=== PATIENT | male | born 1985 | race Caucasian/White ===

== ENCOUNTER 2025-05-18 14:21 | Emergency (ER) | payer MEDICAID, SELFPAY ==
[2025-05-18] VITALS (7 sets, daily range): BP systolic 114–158; BP diastolic 74–86; PULSE 77–100; RESP 16–18; TEMP 36.6–36.8; O2SAT 96–100
--- NOTE | 2025-05-18 15:22 | XR_ITS ---
Examination: CT brain head without contrast. 2-D sagittal coronal reconstructions Date and time of exam:The May 18, 2025 1531 hours INDICATIONS: Stroke alert, onset focal neurologic deficit today CTDI: vol (mGy):50.8 DLP: (mGycm):1074 Technique: Multiple CT axial sections of the brain have been obtained, 5 mm slice thickness. Contrast has not been administered. 2-D sagittal, coronal reconstructions have been obtained Low dose protocols were performed. One or more of the following dose reduction techniques were used; automated exposure control, adjustment of the mA and/or KV according to patient size, use of iterative reconstruction technique. Findings: No significant ventricular enlargement. Intra-axial or extra-axial hemorrhage density is not seen. No mass effect or midline shift Basal cisterns are not remarkable. Fourth ventricle is midline. Cranial vault intact. Impression: Negative for acute hemorrhage, mass effect or midline shift
--- NOTE | 2025-05-18 15:22 | XR_ITS ---
Examination: CTA carotids with intravenous contrast CTA brain, head with intravenous contrast. 2-D sagittal, coronal reconstructions. 3-D reconstructions. Exam date and time: May 18, 2025 1542 hours INDICATIONS: Stroke alert, onset focal neurologic deficit, dilated right high beginning 10:00 AM this morning CTDI: vol (mGy) 11.4 DLP: (mGycm) 503 Technique: Multiple CTA axial brain, head carotid images post intravenous contrast injection 75 cc, Isovue-370. 2-D sagittal, coronal reconstructions. 3-D reconstructions, 3-D post processing including vascular maximum intensity projection images. Low dose protocols were performed. One or more of the following dose reduction techniques were used; automated exposure control, adjustment of the mA and/or KV according to patient size, use of iterative reconstruction technique. Findings: No common carotid carotid bifurcation or internal carotid artery stenoses Dominant left vertebral artery with no critical stenoses Intracranial vertebral arteries basilar artery and posterior cerebral branches fill Juxtasellar supraclinoid portions both internal carotid arteries fill, M1 segments middle cerebral arteries middle cerebral artery trifurcation vessels and anterior cerebral arteries fill with no large vessel occlusions IMPRESSION: No significant neck arterial stenoses No cerebral large vessel arterial occlusions
--- NOTE | 2025-05-18 15:22 | EKG_ITS ---
[facility] Test Date: 2025-05-18 Pat Name: NILESH AGUIRRE Department: Room: - Gender: Male [employer]: : 1985 Requested By: Alli Anaya Order Number: [id number] Reading MD: Alli Anaya Measurements Intervals [place] Rate: 84 P: 50 [place]: 143 QRS: 52 QRSD: 80 T: 16 QT: 349 QTc: 413 Interpretive Statements SINUS RHYTHM No previous ECG available for comparison /store/S0/[id number]/ecg/[id number].pdf
[2025-05-18 15:58] LABS: Basophils % (Auto) 1 % (0-2.5); Eosinophils # (Auto) 0.2 Thou/mm3 (0.0-0.5); Eosinophils % (Auto) 3 % (0-10); Hematocrit 40.6 % (41.0-53.0); Hemoglobin 14.4 g/dL (13.5-16.0); Immature Granulocytes % (Auto) 0 % (0-0); Immature Granulocytes Auto 0.01 Thou/mm3 (0.00-0.00); Lymphocytes # (Auto) 1.8 Thou/mm3 (1.0-4.8); Lymphocytes % (Auto) 23 % (10-50); Mean Corpuscular HGB Conc 35.5 g/dl (31.0-37.0); Mean Corpuscular Hemoglobin 31.5 pg (25.0-35.0); Mean Corpuscular Volume 89 fL (80-100); Monocytes # (Auto) 0.5 Thou/mm3 (0.0-0.8); Monocytes % (Auto) 7 % (0-12); Neutrophils # (Auto) 5.2 Thou/mm3 (1.8-7.7); Neutrophils % (Auto) 67 % (37-80); Nucleated Red Blood Cell % 0 /100 WBC (0); Platelet Count 202 Thou/mm3 (140-440); RDW Standard Deviation 39.3 fL (35.1-43.9); Red Blood Count 4.57 Miln/mm3 (4.50-5.90); White Blood Count 7.8 Thou/mm3 (3.8-10.6)
[2025-05-18 16:11] LABS: Partial Thromboplastin Time 28.5 Seconds (22.0-36.0); Prothrombin Time 10.9 Seconds (9.0-12.2)
--- NOTE | 2025-05-18 16:13 | EDNOTE_ITS ---
ED Eye Problem RME/HPI General Chief complaint: General Adult/Misc Complain Stated complaint: SENT BY PCP; CONCERNED FOR STROKE Time Seen by Provider: 05/18/25 15:12 Arrival date/time: 05/18/25 14:21 Limitations: no limitations RME / HPI RME / HPI Narrative: 40 year old male with no known past medical history presents to the ED for evaluation of anisocoria, referred by his PCP. The patient reports waking this m orning at his usual state of health. Shortly after completing yard work and mowing the lawn around 10:00 AM, he noticed his right pupil appeared larger than the left, accompanied by blurred vision in the right eye. He denies any prior history of similar symptoms. States he consulted PCP, who recommended he come to the ED to rule out a potential stroke or other neurological problem. Patient denies headache, changes in speech, gait instability, or any loss of sensation or motor function. No other associated symptoms reported. Related Data Previous Rx's ?Medication ?Instructions ?Recorded Dicyclomine Hcl * (BENTYL *) 20 mg PO QID PRN abdomina l pains 05/14/17 #16 tabs Allergies Allergy/AdvReac Type Severity Reaction Status Date / Time No Known Allergies Allergy Verified 05/18/25 14:24 Review of Systems Review of Systems Systems Reviewed: All systems reviewed, normal except as documented Past Medical History Past Medical History CARDIAC: Positive Hypertension; Negative Congestive Heart Failure RESPIRATORY: Negative Chronic Obstructive Pulmonary Disease (COPD) GENITOURINARY: Negative Renal Disease ENDOCRINE: Negative Diabetes Mellitus Type 1 or Diabetes Mellitus Type 2 Family History FAMILY HISTORY: Negative Family Respiratory Disorders Social History SMOKING STATUS: Never smoker SUBSTANCE USE: does not use ED Exam General Limitations: Present no limitations General appearance: Present alert and in no apparent distress Head Head exam: Present atraumatic, normocephalic and normal inspection Eye Eye exam: Present EOMI and other (anisocoria, right pupils is 4mm and left pupil is 2.5mm ) ENT ENT exam: Present normal exam, normal oropharynx and mucous membranes moist Neck Neck exam: Present normal inspection, full ROM and trachea midline Chest Chest inspection: Present normal inspection and symmetric chest wall rise Respiratory Respiratory exam: Present normal lung sounds bilaterally Cardiovascular Cardiovascular exam: Present regular rate, normal rhythm and normal heart sounds Abdominal Exam Abdominal exam: Present soft and normal bowel sounds Extremities Exam Extremities exam: Present normal inspection and full ROM Back Exam Back exam: Present normal inspection and full ROM Neurological Exam Neurological exam: Present alert, oriented X3 and CN II-XII intact Psychiatric Psychiatric exam: Present normal affect and normal mood Skin Skin exam: Present warm, dry, intact and normal color Course Quality Measures Suspected type of Stroke: Non Acute Last known well (date): 06/02/25 Last known well (time): 10:00 Tenecteplase given: Reason(s) TPA not given: Outside the time window not given stroke Orders Category Date Time Status Bedside Blood Glucose NOW Care 05/18/25 15:22 Completed Internet Assessor NOW Care 05/18/25 15:22 Completed Continuous Pulse Oximetry NOW Care 05/18/25 15:22 Completed EKG (ED ONLY) *Do not use* NOW Care 05/18/25 15:22 Completed Insert IV NOW Care 05/18/25 15:22 Completed NIH Stroke Scale now Care 05/18/25 15:22 Completed NPO NOW Care 05/18/25 15:22 Completed Neuro Check Q15MIN Care 05/18/25 15:22 Completed Nurse Swallow Screen x1 Care 05/18/25 15:22 Completed Consult to Neurology / Tele-Neurology Routine Cons 05/18/25 15:[address] angio stroke protocol Stat Exams 05/18/25 15:[address] stroke protocol Stat Exams 05/18/25 15:22 Completed EKG (ED Only) Stat Exams 05/18/25 15:22 Draft Alcohol, Blood Medical Stat Lab 05/18/25 15:28 Completed CBC Stat Lab 05/18/25 15:28 Completed Comprehensive Metabolic Panel Stat Lab 05/18/25 15:28 Completed Drug Screen,Urine Stat Lab 05/18/25 16:38 Completed Magnesium Stat Lab 05/18/25 15:28 Completed Partial Thromboplastin Time Stat Lab 05/18/25 15:28 Completed Prothrombin Time with INR Stat Lab 05/18/25 15:28 Completed Troponin I Stat Lab 05/18/25 15:28 Completed Urinalysis Stat Lab 05/18/25 16:38 Completed Sodium Chloride 0.9% 1000 ml [Ns] 1,000 ml Med 05/18/25 15:30 Discontinued IV Q10H Vital Signs Vital signs: Vital Signs Temperature 98.3 F 05/18/25 14:30 Pulse Rate 100 05/18/25 14:30 Respiratory Rate 18 05/18/25 14:30 Blood Pressure 158/80 H 05/18/25 14:30 Pulse Oximetry (%) 100 05/18/25 14:30 Oxygen Delivery Method Room Air 05/18/25 14:30 Pulse ox is 100% on room air which is adequate. Eye MDM Narrative MDM Narrative:: Yudy Valdez am scribing for and in the presence of Dr. Escobar. 40 year old male with no known past medical history presents with acute onset anisocoria and right-sided blurred vision noted after completing yard work around 10:00 AM. Patient denies headache, weakness, gait disturbance, or sensory loss. Given the isolated anisocoria and blurred vision without focal neurological deficits, a stroke was considered but deemed unlikely. Teleneurology Dr. Curran was consulted and agreed this presentation is not consistent with an acute CVA. Additional consideration was given to toxic or pharmacologic causes, particularly given the patient?s report of recent outdoor exposure [place] where pesticides may be used. Anisocoria secondary to inadvertent exposure to anticholinergic or sympathomimetic agents such as pesticides is a possibility. 1705: On reassessment, the patients pupils are slightly improved. The right pupil has gone down 0.5 mm. Patient denies headache and states he feels fine fine. Advised the patient we would observe for another 2 hours. 1800: Patient signed out to Dr. Murphy pending reassessment and final disposition. Patient data External records reviewed:: [facility] previous records (I reviewed ED Visit on 08/05/2021 ) Clinical information provided by:: patient Social determinants that could affect healthcare access:: none Patient has the following chronic illnesses:: None How is presenting disease/condition affected by chronic disease/condition?: no chronic disease Evaluation data The following diagnostics were reviewed and interpreted by me:: lab results, radiology exam(s) and EKG tracing(s) (05/18/2025 @ 15:58. Sinus rhythm, rate 84, no STEMI, no acute ischemic changes. ) Lab and/or radiology exams considered but not ordered:: None Interpretation Summary: Ordering Physician: Alli Escobar MD Date of Service: 05/18/25 Procedure(s): CT stroke protocol Accession Number(s): [id number] cc: Alli Escobar MD; Chris Tejada MD; Deana Gonzalez~ Examination: CT brain head without contrast. 2-D sagittal coronal reconstructions Date and time of exam:The May 18, 2025 1531 hours INDICATIONS: Stroke alert, onset focal neurologic deficit today CTDI: vol (mGy):50.8 DLP: (mGycm):1074 Technique: Multiple CT axial sections of the brain have been obtained, 5 mm slice thickness. Contrast has not been administered. 2-D sagittal, coronal reconstructions have been obtained Low dose protocols were performed. One or more of the following dose reduction techniques were used; automated exposure control, adjustment of the mA and/or KV according to patient size, use of iterative reconstruction technique. Findings: No significant ventricular enlargement. Intra-axial or extra-axial hemorrhage density is not seen. No mass effect or midline shift Basal cisterns are not remarkable. Fourth ventricle is midline. Cranial vault intact. Impression: Negative for acute hemorrhage, mass effect or midline shift Dictated By: Chris Tejada MD Signed By: <Electronically signed by Chris Tejada MD in OV> 05/18/25 1538 Ordering Physician: Alli Escobar MD Date of Service: 05/18/25 Procedure(s): CT angio stroke protocol Accession Number(s): [id number] cc: Alli Escobar MD; Chris Tejada MD; Deana Gonzalez~ Examination: CTA carotids with intravenous contrast CTA brain, head with intravenous contrast. 2-D sagittal, coronal reconstructions. 3-D reconstructions. Exam date and time: May 18, 2025 1542 hours INDICATIONS: Stroke alert, onset focal neurologic deficit, dilated right high beginning 10:00 AM this morning CTDI: vol (mGy) 11.4 DLP: (mGycm) 503 Technique: Multiple CTA axial brain, head carotid images post intravenous contrast injection 75 cc, Isovue-370. 2-D sagittal, coronal reconstructions. 3-D reconstructions, 3-D post processing including vascular maximum intensity projection images. Low dose protocols were performed. One or more of the following dose reduction techniques were used; automated exposure control, adjustment of the mA and/or KV according to patient size, use of iterative reconstruction technique. Findings: No common carotid carotid bifurcation or internal carotid artery stenoses Dominant left vertebral artery with no critical stenoses Intracranial vertebral arteries basilar artery and posterior cerebral branches fill Juxtasellar supraclinoid portions both internal carotid arteries fill, M1 segments middle cerebral arteries middle cerebral artery trifurcation vessels and anterior cerebral arteries fill with no large vessel occlusions IMPRESSION: No significant neck arterial stenoses No cerebral large vessel arterial occlusions Dictated By: Chris Tejada MD Signed By: <Electronically signed by Chris Tejada MD in OV> 05/18/25 1611 Medications / Prescriptions Medications or Prescriptions considered but not ordered:: None Medication administrations:: Medication Administration History Discontinued Medications Sodium Chloride (Ns) 1,000 mls @ 100 mls/hr IV Q10H BRENT Stop: 06/17/25 15:29 Last Infusion: 05/18/25 22:30 Dose: 100 mls/hr Documented By: Admin: 05/18/25 17:33 Dose: 100 mls/hr Documented By: AA See above Consultations Consultation(s) initiated? (list below): Yes Consultation #1 (Physician, Specialty, Details): I spoke with teleneurologist Dr. Curran. 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 Recommended observing the patient for several hours and if symptoms improve, there is no need for further work up. If symptoms persist, recommend MRI brain and orbits to evaluate for structural lesion and ophthalmology consult. Time: 16:18 Diagnosis Eye Problem Differential Diagnosis: other (Anisocoria, CVA, TIA, mydriasis ) Most likely diagnosis given after review of the tests above:: Anisocoria Admission Indicated Admission indicated?: not indicated Explain why admission is indicated or not indicated:: Pt signed out to Dr. Murphy pending reassessment and final disposition. Admission Request Was there a request for admission?: No Disposition Plan Disposition Plan: other (specify) (Signed out to Dr. Murphy ) Discharge Plan Plan Patient Disposition: HOME (Self Care) Prescriptions/Referrals Prescriptions/Med Rec: No Action Dicyclomine Hcl * (BENTYL *) 20 MG tablet 20 mg PO QID PRN (Reason: abdominal pains) Qty: 16 0RF Referrals: Deana Gonzalez FNP [Primary Care Provider] - In 1 week Problem List Clinical Impression: Blurred vision, right eye Patient/Caregiver Discharge Instructions Discharge Activity: activity as tolerated Education Materials: ED Blurred Vision Additional Instructions: I recommend that you see a neurologist for follow-up. If you have recurrence of symptoms, weakness, slurred speech or any other symptom of concern please return to the emergency department. Print Language: Belarusian Stand Alone Forms: Angi Award Info., Patient Portal Info Letter
[2025-05-18 16:19] LABS: Alanine Aminotransferase 17 U/L (10-49); Albumin/Globulin Ratio 1.7 (1.2-2.2); Alcohol, Blood Medical < 10.0 mg/dL (0-10.0); Alkaline Phosphatase 78 U/L (46-116); Anion Gap 11 (7-16); Aspartate Amino Transferase 21 U/L (0-34); BUN/Creatinine Ratio 14 Ratio (12-20); Bilirubin,Total 0.4 mg/dL (0.3-1.2); Blood Urea Nitrogen 17 mg/dL (9-23); Carbon Dioxide 27.3 mMol/L (20.0-31.0); Chloride 103 mMol/L (98-107); Creatinine (Component) 1.2 mg/dL (0.6-1.3); Estimated Creatinine Clearance 88.9 mL/min (>60); Globulin 2.9 gm/dL (2.3-3.5); Glucose 85 mg/dL (74-106); Magnesium 2.1 mg/dL (1.6-2.6); Osmolality,Calculated 281 (275-295); Potassium 3.9 mMol/L (3.4-5.1); Sodium 141 mMol/L (136-145); Total Protein 7.9 gm/dL (5.7-8.2); Troponin I < 0.020 ng/mL (0.0-0.045); eGFR > 60 See Note
--- NOTE | 2025-05-18 16:24 | PD.TNEURO ---
Tele Neuro Consultation Consultation Date 05/18/25 Most Recent Vital Signs Last Vital Signs Temp 98.3 F 05/18/25 14:30 Pulse 89 05/18/25 15:54 Resp 18 05/18/25 14:30 BP 158/80 H 05/18/25 14:30 Pulse Ox 100 05/18/25 14:30 O2 Del Method Room Air 05/18/25 14:30 Laboratory-Coagulation Panel PT 10.9 Seconds (9.0-12.2) 05/18/25 15:28 INR 1.0 (0.9-1.3) 05/18/25 15:28 APTT 28.5 Seconds (22.0-36.0) 05/18/25 15:28 Consultation Narrative [facility] Tele[facility]urology Consult [facility] Patient Name: meg saunders Date of : 1985 Date of Service: 05/18/2025 15:31:32 Diagnosis: ? H57.04 - Mydriasis Impression: ? 40-year-old male history of infrequent headaches, hypertension, who I am seeing as a stroke alert for dilated right eye. Patient being seen for right eye blurriness and associated dilated right pupil. Neuroexam showing right eye 5 mm dilated, some blurriness, left eye with normal vision, 3 mm, both reactive to light. No focal weakness or numbness or speech difficulty. CT head negative for acute process. CT angiogram negative for vessel occlusion or aneurysm or dissection. 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 Patient does have infrequent headaches and family history of migraines however he is not having headache at this time thus migraine aura seems less likely. .. Would continue to monitor, if symptoms improve in the coming hours, no need for further work up. If symptoms persisting, would obtain MRI brain and orbits to evaluate for structural lesion and ophthalmology consult. Our recommendations are outlined below. Recommendations: ? Neuro Checks (Q4) ? IV Fluids, Normal Saline ? -MRI brain and orbits non con and Ophthalmology consult if symptoms not improving in the coming hours Sign Out: ? Discussed with Emergency Department Provider Advanced Imaging: CTA Head and Neck Completed. LVO:No Patient is not a candidate for DIOMEDES Metrics: Last Known Well: 05/18/2025 10:00:00 Dispatch Time: 05/18/2025 15:31:32 Arrival Time: 05/18/2025 14:22:00 Initial Response Time: 05/18/2025 15:33:03 Symptoms: dilated R pupil . Initial patient interaction: 05/18/2025 15:34:35 NIHSS Assessment Completed: 05/18/2025 15:34:36 Patient is not a candidate for Thrombolytic. Thrombolytic Medical Decision: 05/18/2025 15:34:37 Patient was not deemed candidate for Thrombolytic because of following reasons: LKW outside 4.[address] Head: I personally reviewed all the CT images that were available to me and it showed: No acute process Primary Provider Notified of Diagnostic Impression and Management Plan on: 05/18/2025 16:16:54 History of Present Illness: Patient is a 40 year old Male. Patient was brought by private transportation with symptoms of dilated R pupil . 40-year-old male history of infrequent headaches, hypertension, who I am seeing as a stroke alert for dilated right eye. 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 Right after he felt that his right eye was blurry. He went inside and when he looked at his eye he saw that the right eye pupil was larger than the left. He denies any blurriness in his left eye, he denies any weakness numbness tingling in the face arms or legs. He denies any speech difficulty. He denies any current headache. He does have history of monthly headaches that are not severe. He believes his mother has migraines. He take blood pressure medication at home, he takes ibuprofen infrequently for shoulder pain. He has not been started on any new medications. He does not use illicit drugs or stimulants. No inhaler use. Past Medical History: ? Hypertension Medications: No Anticoagulant use No Antiplatelet use Reviewed EMR for current medications Allergies: Reviewed Social History: Drug Use: No Family History: There is no family history of premature cerebrovascular disease pertinent to this consultation ROS : 14 Points Review of Systems was performed and was negative except mentioned in HPI. Past Surgical History: There Is No Surgical History Contributory To Today?s Visit Examination: BP(137/76), Pulse(77), 1A: Level of Consciousness - Alert; keenly responsive + 0 1B: Ask Month and Age - Both Questions Right + 0 1C: Blink Eyes & Squeeze Hands - Performs Both Tasks + 0 2: Test Horizontal Extraocular Movements - Normal + 0 3: Test Visual Cano - No Visual Loss + 0 4: Test Facial Palsy (Use Grimace if Obtunded) - Normal symmetry + 0 5A: Test Left Arm Motor Drift - No Drift for 10 Seconds + 0 5B: Test Right Arm Motor Drift - No Drift for 10 Seconds + 0 6A: Test Left Leg Motor Drift - No Drift for 5 Seconds + 0 6B: Test Right Leg Motor Drift - No Drift for 5 Seconds + 0 7: Test Limb Ataxia (FNF/Heel-Zapata) - No Ataxia + 0 8: Test Sensation - Normal; No sensory loss + 0 9: Test Language/Aphasia - Normal; No aphasia + 0 10: Test Dysarthria - Normal + 0 11: Test Extinction/Inattention - No abnormality + 0 NIHSS Score: 0 NIHSS Free Text : Right eye blurriness, right eye pupil 5 mm Left eye, normal vision, 3 mm Pre-Morbid Modified Baldwin Scale: Unable to assess Spoke with : Dr Escobar This consult was conducted in real time using interactive audio and video technology. Patient was informed of the technology being used for this visit and agreed to proceed. Patient located in hospital and provider located at home/office setting. Patient is being evaluated for possible acute neurologic impairment and high probability of imminent or life-threatening deterioration. I spent total of 35 minutes providing care to this patient, including time for face to face visit via telemedicine, review of medical records, imaging studies and discussion of findings with providers, the patient and/or family. Dr Ángel Curran [facility] For Inpatient follow-up with [facility] physician please call [facility] at . As we are not an outpatient service for any post hospital discharge needs please contact the hospital for assistance. If you have any questions for the [facility] physicians or need to reconsult for clinical or diagnostic changes please contact us via [facility] at .
[2025-05-18 16:44] LABS: Collection Type, Urine Catheter; Squamous Epithelial Cell,Urine 0 /hpf (0-5)
[2025-05-18 17:00] LABS: Amphetamine/Methamp Scrn,U Negative (Negative); Barbiturate Screen,Urine Negative (Negative); Benzodiazepines Screen,Urine Negative (Negative); Benzoylecgonine Screen, Ur Negative (Negative); Fentanyl Screen,Urine Negative (Negative); Opiate Screen,Urine Negative (Negative); THC Screen,Urine Negative (Negative)
[2025-05-18 17:02] LABS: Bilirubin,Urine Negative (Negative); Blood,Urine Negative (Negative); Clarity,Urine Clear (Clear/Hazy); Color,Urine Lt-Yellow (Lt Yel-Yel); Glucose, Urine Negative (Negative); Ketones,Urine Negative (Negative); Leukocyte Esterase,Urine Negative (Negative); Nitrite,Urine Negative (Negative); PH,Urine 6.5 (5.0-7.0); Protein,Urine Negative (Neg - Trace); RBC,Urine 2 /hpf (0-3); Urobilinogen,Urine Negative mg/dL (0.0-1.0); WBC,Urine 1 /hpf (0-5)
[2025-05-18] MEDS: SODIUM CHLORIDE 0.9% 1000 ML 1,000 ML 100 ML IV (17:33)
--- NOTE | 2025-05-18 18:07 | PD.EDADDENDU ---
Emergency Room Addendum Addendum Narrative: 1800: Care assumed from Dr. Escobar (emergency physician). Past medical, surgical, social and family history reviewed. Vitals and home medications reviewed. Results and treatment plan discussed. They will assume the care of the patient at this time and will follow the patient, pending reassessment and final disposition. The following addendum documentation note is intended to reflect any pending information, findings, or radiology results not included in the patient?s initial chart by the previous shift scribe. 2210: GEN. APPEARANCE: The patient is alert awake oriented X-3 in no distress, lying down comfortably, does not look ill/toxic. Patient has good eye contact. Patient is cooperative. VITALS: All vitals were reviewed and the pulse ox is 98% on room air which is normal according to my interpretation. HEENT: Normocephalic, atraumatic. Pupils are symetric and reactive. At baseline, his right eye has greater deficit than his left eye. Oral mucosa is moist. Patent Nares NECK: Supple, nontender, no thyromegaly, no meningismus, no JVD CHEST: Symmetrical, atraumatic, and with equal expansion , Nontender on palpation no deformity and no crepitus. CARDIOVASCULAR: Heart regular rhythm no murmur or gallop rub or extra beats. LUNGS: Clear to auscultation bilaterally with symmetrical chest rise. No laboring tachypnea or wheezing. No intercostal subcostal retraction. No rales and no rhonchi. ABDOMEN: Soft, flat, nontender to palpation, no guarding or rebound tenderness. There are no abnormal masses palpated. Active and normal bowel sounds. EXTREMITIES: Nontender. No edema. No cyanosis. Patient is able to move all 4 extremities well, with full ROM and good CSM. SKIN: Warm and dry, no jaundice or rashes noted. NEURO: Patient is RAINYE x 4, Cranial nerves II through XII grossly intact. There is no focal neurologic deficits noted. GCS is 15, PNS and [employer] appear grossly intact. PSYCHIATRIC: Patient is in normal mood and affect. 2217:I have spoken with the patient and discussed today?s findings, in addition to providing specific details for the plan of care. Questions are answered and there is an agreement with the plan. Re-assessment at the time of disposition demonstrates that the patient is in no acute distress. The patient has remained stable throughout the entire ED visit and is without objective evidence for acute process requiring urgent intervention or hospitalization. The patient is stable for discharge; counseling is provided and documented as above, discussed symptomatic treatment and specific conditions for return.
--- NOTE | 2025-05-18 19:05 | PC.NURSE ---
Missile Pad Mechanic assumes care of patient at this time, pt reports no c/o of vision issues, pain, or distress. Pt is A/O x 3
== END 2025-05-18 22:42 | disposition home or self-care (01) ==
PROVIDERS: Family Medicine; Emergency Provider Emergency Medicine; PCP Student in an Organized Health Care Education/Training Program
DX: H57.02 Anisocoria (principal); H53.8 Other visual disturbances
CPT/HCPCS: 36415; 70450; 70496; 70498; 80053; 80307; 80320; 81001; 83735; 84484; 85025; 85610; 85730; 93005; 96360; 96361; 99285; A4649; J7030; Q9967; G0480